=== PATIENT | male | born 1955 | race Caucasian/White ===

== ENCOUNTER 2017-08-12 16:00 | Inpatient (IN) | payer BC ==
--- NOTE | 2017-08-12 16:37 | ED ---
General Adult HPI - General Chief complaint: Wound/Laceration Stated complaint: Hand infection Time Seen by Provider: 08/12/17 16:20 Source: patient, RN notes reviewed Mode of arrival: ambulatory Limitations: no limitations - History of Present Illness Initial comments: 62-year-old male history of hypertension and hypercholesterolemia presents for evaluation of pain and swelling in his right thumb. Patient was sent by his primary care physician for failure to improve on outpatient antibiotics. Patient was diagnosed with a paronychia on Tuesday, he has been on Bactrim since that time. Within the past 5 days he has also received a shot of ceftriaxone. Symptoms have failed to improve, he has had some minimal drainage coming from the wound. Patient's primary care physician noticed some erythema tracking up the thumb towards the wrist. Sent the patient for IV antibiotics. Patient did have incision and drainage of paronychia earlier in the week. Patient is noted to have a fever in triage. - Related Data Home Medications Medication Instructions Recorded Confirmed Acetaminophen Tab [Tylenol Tab] 1,000 mg PO Q6HR PRN 08/12/17 08/12/17 Ibuprofen [Motrin Ib] 200 - 400 mg PO Q6H PRN 08/12/17 08/12/17 Lisinopril [Zestril] 10 mg PO DAILY 08/12/17 08/12/17 Naproxen Sodium 220 mg PO BID PRN 08/12/17 08/12/17 Omeprazole 20 mg PO DAILY 08/12/17 08/12/17 Simvastatin [Zocor] 20 mg PO DAILY 08/12/17 08/12/17 Sulfamethox-Tmp 800-160Mg [Bactrim 1 tab PO Q12HR 08/12/17 08/12/17 DS 800-160 mg] Allergies Allergy/AdvReac Type Severity Reaction Status Date / Time No Known Allergies Allergy Verified 08/12/17 16:35 Review of Systems ROS Statement: Those systems with pertinent positive or pertinent negative responses have been documented in the HPI. ROS Other: All systems not noted in ROS Statement are negative. Past Medical History Past Medical History: GERD/Reflux, Hyperlipidemia, Hypertension History of Any Multi-Drug Resistant Organisms: None Reported Past Surgical History: Adenoidectomy, Orthopedic Surgery, Tonsillectomy Additional Past Surgical History / Comment(s): eye Past Psychological History: No Psychological Hx Reported Smoking Status: Never smoker Past Alcohol Use History: Occasional Past Drug Use History: None Reported General Exam Limitations: no limitations General appearance: alert, in no apparent distress Head exam: Present: atraumatic, normocephalic Eye exam: Present: normal appearance, PERRL ENT exam: Present: normal exam Neck exam: Present: normal inspection. Absent: tenderness, meningismus Respiratory exam: Present: normal lung sounds bilaterally. Absent: respiratory distress Cardiovascular Exam: Present: regular rate, normal rhythm GI/Abdominal exam: Present: soft. Absent: distended, tenderness Extremities exam: Present: other (Right hand: Patient has infection he the distal phalanx, consistent with combination of felon and paronychia, there is some minimal drainage on the dorsal surface of the distal thumb. There is some tracking erythema and warmth over the hand and wrist.) Back exam: Present: full ROM. Absent: tenderness Neurological exam: Present: alert, oriented X3. Absent: motor sensory deficit Psychiatric exam: Present: normal affect, normal mood Skin exam: Present: warm, dry Course Vital Signs 08/12/17 16:09 Temperature 100.1 F H Pulse Rate 86 Respiratory 16 Rate Blood Pressure 161/95 O2 Sat by Pulse 96 Oximetry Procedures - Incision & Drainage Consent Obtained: verbal consent Time Out Performed?: Yes Indication: Right thumb paronychia and felon Site: hand Anesthetic Used: lidocaine 1%, without epi I&D Cleaning Method: Betadine Sterile Field Used?: Yes Scalpel Used: #11 Irrigation Performed?: Yes I&D Drainage Obtained: Pus, Blood Culture Obtained?: Yes Patient Tolerated Procedure: well Medical Decision Making - Medical Decision Making 60-year-old male presenting for evaluation pain and swelling in his right thumb. Patient has a paronychia that was previously drained in a felon. Patient has been on outpatient antibiotics with no improvement. There was some tracking erythema and warmth on the hand. Patient had previous incision and drainage of paronychia which is draining some mild purulence. Incision and drainage is performed of both paronychia and felon in the emergency department. Cultures are obtained both urine cultures and blood cultures. Patient is started on antibiotics, ceftriaxone and vancomycin. He will be admitted for IV antibiotics and reevaluation. X-ray negative for soft tissue gas or osteomyelitis. Laboratory studies reveal normal blood cell count, there is elevation C-reactive protein at 78 consistent with infection. Diagnosis: Felon, paronychia, failed outpatient antibiotics. - Lab Data Result diagrams: 08/12/17 16:52 Lab Results 18 08/12/17 Range/Units 16:52 16:52 WBC 9.8 (3.8-10.6) k/uL RBC 4.84 (4.30-5.90) m/uL Hgb 15.4 (13.0-17.5) gm/dL Hct 45.6 (39.0-53.0) % MCV 94.3 (80.0-100.0) fL MCH 31.8 (25.0-35.0) pg MCHC 33.7 (31.0-37.0) g/dL RDW 12.0 (11.5-15.5) % Plt Count 337 (150-450) k/uL Neutrophils % 81 % Lymphocytes % 10 % Monocytes % 5 % Eosinophils % 2 % Basophils % 0 % Neutrophils # 7.9 H (1.3-7.7) k/uL Lymphocytes # 1.0 (1.0-4.8) k/uL Monocytes # 0.5 (0-1.0) k/uL Eosinophils # 0.2 (0-0.7) k/uL Basophils # 0.0 (0-0.2) k/uL PT 9.6 (9.0-12.0) sec INR 1.0 (<1.2) APTT 23.5 (22.0-30.0) sec Disposition Clinical Impression: Felon of finger, Paronychia Disposition: ADMITTED IP TO THIS HOSP Condition: Stable Referrals: Anil Canales MD [Primary Care Provider] - 1-2 days Time of Disposition: 17:23
[2017-08-12] MEDS ORDERED: VANCOMYCIN IV PER PHARMACY 1 EACH MISC MISCELLANE PRN (16:40)
[2017-08-12] MEDS ORDERED: cefTRIAXone IN SWFI 1,000 MG/10 ML SYRINGE IVP STA (16:44)
[2017-08-12] MEDS ORDERED: VANCOMYCIN 1,500 MG in SODIUM CHLORIDE 0.9% 250 ML IVPB STA (16:45)
--- NOTE | 2017-08-12 16:57 | XR ---
EXAMINATION TYPE: XR hand complete RT DATE OF EXAM: 08/12/2017 COMPARISON: NONE HISTORY: Three-view right hand, attention fifth digit infection TECHNIQUE: 3 views right hand FINDINGS: No radiopaque foreign bodies are evident. Soft tissues appear normal. No suspicious erosion through the fifth digit is evident. Osseous structures appear intact. IMPRESSION: 1. Normal three-view right hand
[2017-08-12 17:08] LABS: Basophils % (A) 0 %; Eosinophils # (A) 0.2 k/uL (0-0.7); Eosinophils % (A) 2 %; HCT 45.6 % (39.0-53.0); HGB 15.4 gm/dL (13.0-17.5); Lymphocytes % (A) 10 %; MCH 31.8 pg (25.0-35.0); MCHC 33.7 g/dL (31.0-37.0); MCV 94.3 fL (80.0-100.0); Mean Platelet Volume 7.2; Monocytes # (A) 0.5 k/uL (0-1.0); Monocytes % (A) 5 %; Neutrophils # (A) 7.9 k/uL (1.3-7.7); Neutrophils % (A) 81 %; Platelet Count 337 k/uL (150-450); RBC 4.84 m/uL (4.30-5.90); WBC 9.8 k/uL (3.8-10.6)
[2017-08-12 17:12] LABS: Partial Thromboplastin Time 23.5 sec (22.0-30.0); Prothrombin Time 9.6 sec (9.0-12.0)
[2017-08-12 17:19] LABS: ALT 78 U/L (21-72); AST 59 U/L (17-59); Albumin 4.4 g/dL (3.5-5.0); Alkaline Phosphatase 94 U/L (38-126); Anion Gap 14 mmol/L; Blood Urea Nitrogen 27 mg/dL (9-20); C Reactive Protein 78.9 mg/L (<10.0); Calcium 10.2 mg/dL (8.4-10.2); Carbon Dioxide 30 mmol/L (22-30); Chloride 99 mmol/L (98-107); Glucose 106 mg/dL (74-99); Sodium 143 mmol/L (137-145); Total Bilirubin 0.4 mg/dL (0.2-1.3); Total Protein 7.2 g/dL (6.3-8.2)
[2017-08-12] MEDS ORDERED: KETOROLAC 30 MG/ML 1 ML VIAL IM STA (17:24)
[2017-08-12] MEDS ORDERED: KETOROLAC 30 MG/ML 1 ML VIAL IVP STA (17:26)
[2017-08-12] MEDS ORDERED: HYDROmorphone 0.5 MG/0.5 ML SYRINGE IVP PRN (17:30)
[2017-08-12] MEDS ORDERED: NALOXONE 0.4 MG/ML 1 ML VIAL IV PRN ×2 (17:30→21:23)
[2017-08-12] MEDS ORDERED: ACETAMINOPHEN TAB 325 MG TAB PO PRN ×2 (17:30→21:23)
[2017-08-12] MEDS ORDERED: ACETAMINOPHEN TAB 500 MG TAB PO PRN (18:12)
[2017-08-12] MEDS: SODIUM CHLORIDE 0.9% 1,000 ML IV SCH (20:06)
[2017-08-12] MEDS ORDERED: PROCHLORPERAZINE 5 MG TAB PO PRN (21:23)
[2017-08-12] MEDS ORDERED: MELATONIN 3 MG TABLET PO PRN (21:23)
[2017-08-12] MEDS ORDERED: HYDROcodone/APAP 5-325MG 1 EACH TAB PO PRN (21:23)
[2017-08-12] MEDS: NAPROXEN 250 MG TAB PO SCH (21:59)
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
[2017-08-13] MEDS: KETOROLAC 30 MG/ML 1 ML VIAL IVP PRN ×4 (00:01→18:09)
[2017-08-13] MEDS: VANCOMYCIN 1,500 MG in SODIUM CHLORIDE 0.9% 250 ML IVPB SCH ×2 (06:01→18:07)
[2017-08-13] MEDS: SODIUM CHLORIDE 0.9% 1,000 ML IV SCH (06:01)
[2017-08-13] MEDS: PANTOPRAZOLE 40 MG TABLET PO SCH (08:40)
[2017-08-13] MEDS: ATORVASTATIN 10 MG TAB PO SCH (08:40)
[2017-08-13] MEDS: LISINOPRIL 10 MG TAB PO SCH (08:40)
[2017-08-13] MEDS: cefTRIAXone IN SWFI 1,000 MG/10 ML SYRINGE IVP SCH (08:44)
[2017-08-13] MEDS: NAPROXEN 250 MG TAB PO SCH ×2 (08:44→20:12)
[2017-08-13 09:03] LABS: Basophils % (A) 1 %; Eosinophils # (A) 0.2 k/uL (0-0.7); Eosinophils % (A) 3 %; HGB 13.5 gm/dL (13.0-17.5); Lymphocytes # (A) 0.9 k/uL (1.0-4.8); Lymphocytes % (A) 15 %; MCH 31.1 pg (25.0-35.0); MCHC 32.2 g/dL (31.0-37.0); MCV 96.5 fL (80.0-100.0); Mean Platelet Volume 7.4; Monocytes # (A) 0.3 k/uL (0-1.0); Monocytes % (A) 5 %; Neutrophils # (A) 4.6 k/uL (1.3-7.7); Neutrophils % (A) 75 %; Platelet Count 290 k/uL (150-450); RBC 4.35 m/uL (4.30-5.90); RDW 12.2 % (11.5-15.5); WBC 6.2 k/uL (3.8-10.6)
[2017-08-13 09:14] LABS: Anion Gap 13 mmol/L; Blood Urea Nitrogen 29 mg/dL (9-20); Calcium 9.5 mg/dL (8.4-10.2); Carbon Dioxide 24 mmol/L (22-30); Chloride 102 mmol/L (98-107); Glucose 232 mg/dL (74-99); Potassium 4.2 mmol/L (3.5-5.1); Sodium 139 mmol/L (137-145)
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
--- NOTE | 2017-08-13 12:52 | P.PN ---
Progress Note - Text Progress Note Date: 08/13/17 DATE OF SERVICE: 08/13/2017 PRESENTING COMPLAINT: Right thumb infection HISTORY OF PRESENT ILLNESS: 62-year-old male who developed pain in his right thumb about a week ago was seen outpatient by was lanced antibiotics received. Return to the office 2 days after with more pain and swelling another incision made to drain the same. Became worse. [address] it might have started off as Paronychia. Plan continue to be painful throbbing management of low-grade fever presented to the emergency department again where was lanced and possible strain. Cultures were sent. Admitted for the same. INTERVAL HISTORY: 08/13/2017: Sitting up in bed appears comfortable right thumb bandaged. Vital signs stable , no acute overnight events. Some shadowing noted to the dressing. States the thumb feels much better than it did on his previous trips to the emergency department. at the bedside. Orthopedics at the bedside to see the patient. Tolerating his diet eating between 50 and 75% of all meals. ambulatory in the room and hallway, last BM prior to admission. REVIEW OF SYSTEMS: Done for constitutional ,cardiovascular, GI, pulmonary with relevant findings as above. CURRENT MEDICATIONS Tylenol, [place], Lipitor, Rocephin, Toradol, Zestril, melatonin, Narcan, naproxen , Protonix, Compazine, Silvadene, 0.9 normal saline at 20 mL an hour, vancomycin IV. PHYSICAL EXAM VITAL SIGNS: Temperature 97.8, pulse 59, respiratory rate 16, blood pressure 115/64, oxygen saturation 97% on room air GENERAL APPEARANCE: Sitting up on the bed, not in distress. HENT: Normocephalic, JVD not raised. Mass not palpable. Oral cavity normal, external appearance of ears and nose normal. EYES:Pupils equal. Conjunctiva normal. RESPIRATORY: Respiratory effort normal. Lungs clear to auscultation. CARDIOVASCULAR: First and second sounds normal. No edema. ABDOMEN: Soft. Liver and spleen not palpable. No tenderness. No mass palpable. PSYCHIATRY: Alert and oriented x3. Mood and affect normal. EXTREMITIES: Right thumb is swollen with bluish discoloration breakdown of the wound on the lateral aspect where I&D was carried out. Tenderness to palpation some pus draining. INVESTIGATIONS: LABS: CBC unremarkable. BMP: BUN 29, glucose 232 ASSESSMENT: -Acute will be started from paronychia in the right hand. The patient was drained twice by his family doctor in 1 to the ER been on Bactrim and failed outpatient treatment. -Gastroesophageal reflux disease. -Essential hypertension. -Hyperlipidemia. PLAN: Continue IV vancomycin and ceftriaxone, orthopedics plans to take the patient to surgery for right thumb I&D tomorrow. Nothing by mouth after midnight, cultures to be taken during surgery. Patient getting good pain management results with Naprosyn and Toradol. Plan of care discussed at the bedside with patient and they're agreeable. We'll follow closely. COUNTY ADVISER statement: Patient was seen and examined by nurse practitioner Serina Treviño and all elements of the case discussed with attending Dr. Plunkett
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
--- NOTE | 2017-08-14 00:29 | PN ---
PROGRESS NOTE DATE OF SERVICE: August 13, 2017. ATTENDING NOTE: Patient seen and examined by me. I discussed with nurse practitioner, Ms. Treviño. The patient presents with abscess of the right thumb failed outpatient treatment. Pain is better controlled. PHYSICAL EXAMINATION: Afebrile. Pulse 86, respiratory rate 16, blood pressure 100/73, abscess of the right thumb is present. White count 6.2. Patient is growing MRSA. ASSESSMENT: Right thumb abscess, having failed outpatient treatment, growing Methicillin-resistant Staphylococcus aureus. The patient will have I and D done by Dr. Cade tomorrow. Care was discussed with the patient. MMODL / IJN: [id number] /
[2017-08-14] MEDS: VANCOMYCIN 1,500 MG in SODIUM CHLORIDE 0.9% 250 ML IVPB SCH ×2 (05:44→17:50)
[2017-08-14] MEDS: MULTIVITAMINS, THERA 1 EACH TAB PO SCH (05:44)
[2017-08-14] MEDS: KETOROLAC 30 MG/ML 1 ML VIAL IVP PRN ×3 (05:47→17:49)
[2017-08-14] MEDS: PANTOPRAZOLE 40 MG TABLET PO SCH (07:56)
[2017-08-14 08:54] LABS: Anion Gap 11 mmol/L; Blood Urea Nitrogen 22 mg/dL (9-20); Calcium 9.6 mg/dL (8.4-10.2); Carbon Dioxide 27 mmol/L (22-30); Chloride 103 mmol/L (98-107); Glucose 111 mg/dL (74-99); Sodium 141 mmol/L (137-145)
[2017-08-14 08:57] LABS: Basophils % (A) 1 %; Eosinophils # (A) 0.2 k/uL (0-0.7); Eosinophils % (A) 3 %; HCT 41.1 % (39.0-53.0); HGB 13.5 gm/dL (13.0-17.5); Lymphocytes # (A) 1.2 k/uL (1.0-4.8); Lymphocytes % (A) 19 %; MCH 31.7 pg (25.0-35.0); MCHC 32.9 g/dL (31.0-37.0); MCV 96.5 fL (80.0-100.0); Monocytes # (A) 0.4 k/uL (0-1.0); Monocytes % (A) 6 %; Neutrophils # (A) 4.2 k/uL (1.3-7.7); Neutrophils % (A) 69 %; Platelet Count 274 k/uL (150-450); RBC 4.26 m/uL (4.30-5.90); RDW 12.2 % (11.5-15.5); WBC 6.1 k/uL (3.8-10.6)
[2017-08-14] MEDS: LISINOPRIL 10 MG TAB PO SCH (09:15)
[2017-08-14] MEDS: ATORVASTATIN 10 MG TAB PO SCH (09:15)
[2017-08-14] MEDS: NAPROXEN 250 MG TAB PO SCH ×2 (09:15→20:02)
[2017-08-14] MEDS: cefTRIAXone IN SWFI 1,000 MG/10 ML SYRINGE IVP SCH (09:22)
[2017-08-14] MEDS ORDERED: fentaNYL (PF) 50 MCG/ML 2 ML AMP ONE (12:31)
[2017-08-14] MEDS ORDERED: KETOROLAC 30 MG/ML 1 ML VIAL ONE (12:31)
[2017-08-14] MEDS ORDERED: PROPOFOL 10 MG/ML 20 ML VIAL IV ONE (12:31)
[2017-08-14] MEDS ORDERED: MIDAZOLAM 2 MG/2 ML VIAL ONE (12:31)
[2017-08-14] MEDS ORDERED: BUPIVACAINE (PF) 0.25% 30 ML VIAL SQ ONE (12:41)
[2017-08-14] MEDS ORDERED: LACTATED RINGERS 1,000 ML IV ONE (12:51)
[2017-08-14] MEDS ORDERED: ceFAZolin 1,000 MG in SODIUM CHLORIDE 0.9% 1,000 ML IRRIGATION ONE (12:52)
--- NOTE | 2017-08-14 13:17 | P.OP ---
Date of Procedure: 08/14/17 Preoperative Diagnosis: Right thumb felon/abscess Postoperative Diagnosis: Same Procedure(s) Performed: Incision and drainage with irrigation and debridement right thumb felon/abscess Anesthesia: MAC, local Surgeon: Mitchell Cade Agricultural Research Director #1: Maximo Hinds Estimated Blood Loss (ml): 5 Pathology: other (Cultures) Condition: stable Disposition: PACU Indications for Procedure: Patient is a 62-year-old male who presents with a weeklong history of increasing right thumb pain, swelling, and drainage. He has had multiple attempted incision and drainage performed. A discussion of the risks and benefits of irrigation and debridement was made with patient. Specific risks to include persistence of infection, and possible need for subsequent procedures was discussed. Operative Findings: As below Description of Procedure: The patient was brought to the operating room, and after induction of IV sedation a digital block was placed in the right thumb. 10 mL of one quarter percent plain Marcaine was injected. The right upper extremity was prepped and draped in normal fashion. A [place] drain was used as a tourniquet. The nail plate was removed. There was purulence surrounding the volar tissue. Previous incisions were noted. The wound was copiously irrigated with normal saline. The wound edges were sharply debrided with a scalpel including skin and subcutaneous tissues. The necrotic tissue was removed. The wound edges were loosely reapproximated with simple 3-0 nylon suture. A sterile dressing was applied. I did obtain cultures. The patient was awoken from sedation and transferred to the recovery room in good condition. Blood loss was estimated at 5 mL. No complications were incurred.
[2017-08-14] MEDS ORDERED: VANCOMYCIN TROUGH DUE 1 EACH MISC MISCELLANE ONE (16:00)
[2017-08-14] MEDS: SODIUM CHLORIDE 0.9% 1,000 ML IV SCH (17:53)
--- NOTE | 2017-08-14 19:55 | P.PN ---
Progress Note - Text Progress Note Date: 08/14/17 DATE OF SERVICE: 08/14/2017 PRESENTING COMPLAINT: Right thumb infection HISTORY OF PRESENT ILLNESS: 62-year-old male who developed pain in his right thumb about a week ago was seen outpatient by was lanced antibiotics received. Return to the office 2 days after with more pain and swelling another incision made to drain the same. Became worse. [place] it might have started off as Paronychia. Plan continue to be painful throbbing management of low-grade fever presented to the emergency department again where was lanced and possible strain. Cultures were sent. Admitted for the same. INTERVAL HISTORY: 08/14/2017: Sitting up in bed appears comfortable right thumb continues to be bandaged. Vital signs stable no acute overnight events. No shadowing noted to the dressing. Thumb continues to be painful but pain medication does do the job. is at the bedside. Orthopedics to take patient for an I&D of the thumb with cultures later today. Currently nothing by mouth, and ambulatory in the room and hallway last BM 08/14/2017. 08/13/2017: Sitting up in bed appears comfortable right thumb bandaged. Vital signs stable , no acute overnight events. Some shadowing noted to the dressing. States the thumb feels much better than it did on his previous trips to the emergency department. at the bedside. Orthopedics at the bedside to see the patient. Tolerating his diet eating between 50 and 75% of all meals. ambulatory in the room and hallway, last BM prior to admission. REVIEW OF SYSTEMS: Done for constitutional ,cardiovascular, GI, pulmonary with relevant findings as above. CURRENT MEDICATIONS Tylenol, [place], Lipitor, Rocephin, Toradol, Zestril, melatonin, Narcan, naproxen , Protonix, Compazine, Silvadene, 0.9 normal saline at 20 mL an hour, vancomycin IV. PHYSICAL EXAM VITAL SIGNS: Temperature 97.7, pulse 53, respiratory rate 16, blood pressure 115/72, oxygen saturation 97% on room air. GENERAL APPEARANCE: Sitting up on the bed, not in distress. HENT: Normocephalic, JVD not raised. Mass not palpable. Oral cavity normal, external appearance of ears and nose normal. EYES:Pupils equal. Conjunctiva normal. RESPIRATORY: Respiratory effort normal. Lungs clear to auscultation. CARDIOVASCULAR: First and second sounds normal. No edema. ABDOMEN: Soft. Liver and spleen not palpable. No tenderness. No mass palpable. PSYCHIATRY: Alert and oriented x3. Mood and affect normal. EXTREMITIES: Right thumb is swollen with bluish discoloration breakdown of the wound on the lateral aspect where I&D was carried out. Tenderness to palpation some pus draining. INVESTIGATIONS: LABS: BUN 22. Right index finger wound culture: pending Right index finger anaerobic culture: pending Right index finger culture: Methicillin-resistant staph aureus Blood culture no growth after 48 hours ASSESSMENT: -Acute will be started from paronychia in the right hand. The patient was drained twice by his family doctor in 1 to the ER been on Bactrim and failed outpatient treatment. -Gastroesophageal reflux disease. -Essential hypertension. -Hyperlipidemia. PLAN: Continue IV vancomycin and ceftriaxone, right thumb I&D planned for later today. Remains Nothing by mouth cultures to be taken during surgery. With additional cultures from surgery to drive antibiotic therapy per infectious disease. Patient getting satisfactory pain management results with Naprosyn and Toradol. Plan of care discussed at the bedside with patient and they' re agreeable. We'll follow closely. PROJECT GEOPHYSICIST statement: Patient was seen and examined by nurse practitioner Serina Treviño and all elements of the case discussed with attending Dr. Plunkett
--- NOTE | 2017-08-14 21:47 | PN ---
PROGRESS NOTE DATE OF SERVICE: 08/14/2017 ATTENDING NOTE: Patient seen and examined by me. I discussed with nurse practitioner, Ms. Treivño. The patient underwent I and D of the left thumb today by Dr. Cade, left thumb in a dressing. The wound was well irrigated with normal saline. Dressing noted to be changed. Pain is well controlled. No nausea, vomiting. No diarrhea. PHYSICAL EXAMINATION: Afebrile, pulse 50, respiration 18, blood pressure 108/77, left arm in a dressing. Lungs are clear. Cardiovascular 1st and 2nd sounds normal. Wound cultures growing MRSA. ASSESSMENT: Acute wound having failed outpatient treatment to the right thumb, status post I and D growing MRSA. Continue with vancomycin. Will DC the ceftriaxone. Await further input from Dr. Jones. Care was discussed with the patient and . MMODL / IJN: [id number] /
[2017-08-15] MEDS: VANCOMYCIN 1,500 MG in SODIUM CHLORIDE 0.9% 250 ML IVPB SCH (05:23)
[2017-08-15] MEDS: KETOROLAC 30 MG/ML 1 ML VIAL IVP PRN ×4 (05:26→23:18)
[2017-08-15] MEDS: MULTIVITAMINS, THERA 1 EACH TAB PO SCH (05:26)
[2017-08-15] MEDS: PANTOPRAZOLE 40 MG TABLET PO SCH (07:56)
[2017-08-15] MEDS: NAPROXEN 250 MG TAB PO SCH ×2 (07:56→21:49)
[2017-08-15] MEDS: ATORVASTATIN 10 MG TAB PO SCH (07:56)
[2017-08-15] MEDS: LISINOPRIL 10 MG TAB PO SCH (07:56)
[2017-08-15] MEDS: SODIUM CHLORIDE 0.9% 1,000 ML IV SCH (11:00)
--- NOTE | 2017-08-15 11:56 | NM ---
EXAMINATION TYPE: NM bone 3 phase DATE OF EXAM: 08/15/2017 COMPARISON: Radiographs 08/12/2017 HISTORY: 62-year-old male with right thumb swelling and drainage Technique: Triple phase bone scintigraphy was performed following the injection of24.5 mCi Tc 99m MDP . Immediate flow followed by pool images and 3 hours post injection images were acquired of the bila teral distal upper extremity. FINDINGS: There is three-phase bone scan abnormality involving the distal aspect of the thumb of the right hand . Intense delayed activity is localized to the first distal phalanx. IMPRESSION: Three-phase bone scan abnormality involving the distal phalanx of the right thumb. Findings can be se en with osteomyelitis.
[2017-08-15] MEDS: DAPTOmycin 500 MG in SODIUM CHLORIDE 0.9% 50 ML IV SCH (13:02)
[2017-08-15] MEDS ORDERED: LIDOCAINE 2% INJ 20 MG/ML SQ ONE (14:00)
[2017-08-15 14:59] VITALS: RESP 16
--- NOTE | 2017-08-15 15:15 | CDI ---
Last Revision, June 2017 Documentation Clarification Form Date: 08/15/2017 3:07:00 PM From: Ruma HathawayARDEN, CCDS Admit Date: 08/12/2017 5:30:00 PM Patient Name: Otoniel Colby Visit Number: [id number] Discharge Date: ATTENTION: The Clinical Documentation Specialists (CDI) and [facility] Coding Staff appreciate your assistance in clarifying documentation. Please respond to the clarification below the line at the bottom and electronically sign. The CDI & [facility] Coding staff will review the response and follow-up if needed. Please note: Queries are made part of the Legal Health Record. If you have any questions, please contact the author of this message via ITS. Dr. Mitchell Cade: Per your operative note, a debridement was performed on the right thumb. 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 Clinical Indicators: Presented with right thumb felon & abscess, failed outpatient treatment. Treatment: Surgery: I&D with Irrigation & Debridement right thumb. IV Vancomycin , IV Rocephin, IV Toradol, IV Dilaudid. Five elements required for accurate and compliant documentation of a debridement : 1. Technique used (e.g., excisional, excised, cutting, etc.) 2. Instrument(s) used (e.g., scalpel, curette, etc.) 3. Nature of the tissue removed (e.g., necrotic, devitalized tissues, non-viable tissue, etc.) 4. Appearance and size of the wound (e.g., down to fresh bleeding tissue, 7cm x 10cm, etc.) 5. Depth of the debridement* (e.g., skin, subcutaneous tissue, fascia, muscle, bone, etc.) In order to capture the severity of condition and code the appropriate procedure ; could you please document the following: Excisional debridement (the removal of necrotic, devitalized tissue or slough by means of cutting away of tissue) Non-excisional debridement (the removal of necrotic, devitalized tissue or slough by means of flushing, brushing, or washing. (Irrigation) Other; please specify Unable to determine Please continue to document in your progress notes and discharge summary in order to capture severity of illness and risk of mortality. Include clinical findings that support your diagnosis. MTDD
--- NOTE | 2017-08-15 15:31 | P.PN ---
Subjective Progress Note Date: 08/15/17 Principal diagnosis: Status post incision and drainage with irrigation and debridement right thumb abscess Patient was seen today resting in his hospital bed, he appears comfortable. No breakthrough pain through the night. He notes no acute fevers or chills. Objective - Vital Signs Vital signs: Vital Signs Temp 97.6 F 08/15/17 14:58 Pulse 59 L 08/15/17 14:58 Resp 16 08/15/17 14:58 BP 143/73 08/15/17 14:58 Pulse Ox 99 08/15/17 14:58 Intake & Output 08/14/17 08/15/17 08/15/17 18:59 06:59 18:59 Intake Total 501.5 50 Output Total 5 Balance 496.5 50 Weight 74.843 kg Intake: IV 501.5 50 DAPTOmycin 500 mg In 50 Sodium Chloride 0.9% 50 ml @ 100 mls/hr IV Q24H [facility] Rx#:[id number] Output: Estimated Blood Loss 5 Other: # Voids 2 1 # Bowel Movements 0 - Exam Right upper extremity: Postoperative bandages in good position and condition. Radial pulses 2+. His sensation to light touch throughout the index, middle, ring and little finger were intact - Labs CBC & Chem 7: 08/14/17 08:00 08/14/17 08:00 Labs: Microbiology - Last 24 Hours (Table) 08/14/17 13:05 Gram Stain - Preliminary Finger - Right First Wound Culture - Preliminary Presumptive MRSA 08/12/17 17:34 Anaerobic Culture - Preliminary Finger - Right First 08/12/17 16:52 Blood Culture - Preliminary Blood No Growth after 48 hours 08/12/17 17:34 Gram Stain - Final Finger - Right First Wound Culture - Final Methicillin resist S. aureus 08/14/17 13:05 Anaerobic Culture - Preliminary Finger - Right First Assessment and Plan Plan: Assessment: 1. Postop day 1 status post incision and drainage along with irrigation and debridement right thumb abscess Plan: 1. Pain control, oral medication as needed 2. Patient is being scheduled for PICC line and the use of IV outpatient antibiotics 3. We will change postop bandage tomorrow 4. Hopeful discharge tomorrow Time with Patient: Less than 30
--- NOTE | 2017-08-15 19:41 | P.PN ---
Progress Note - Text Progress Note Date: 08/15/17 DATE OF SERVICE: 08/15/2017 PRESENTING COMPLAINT: Right thumb infection HISTORY OF PRESENT ILLNESS: 62-year-old male who developed pain in his right thumb about a week ago was seen outpatient by was lanced antibiotics received. Return to the office 2 days after with more pain and swelling another incision made to drain the same. Became worse. [place] it might have started off as Paronychia. Plan continue to be painful throbbing management of low-grade fever presented to the emergency department again where was lanced and possible strain. Cultures were sent. Admitted for the same. INTERVAL HISTORY: 08/15/2017: Ambulatory in the room and hallway find the patient at the nurse's station. Vital signs are stable, no acute overnight events. No shadowing noted to the dressing. Thumb continues to be painful but anti-inflammatories help. Bone scan scheduled for this morning. Cultures reveal presumptive MRSA. Infectious disease to be consulted for antibiotic therapy and PICC line. 08/14/2017: Sitting up in bed appears comfortable right thumb continues to be bandaged. Vital signs stable no acute overnight events. No shadowing noted to the dressing. Thumb continues to be painful but pain medication does do the job. is at the bedside. Orthopedics to take patient for an I&D of the thumb with cultures later today. Currently nothing by mouth, and ambulatory in the room and hallway last BM 08/14/2017. 08/13/2017: Sitting up in bed appears comfortable right thumb bandaged. Vital signs stable , no acute overnight events. Some shadowing noted to the dressing. States the thumb feels much better than it did on his previous trips to the emergency department. at the bedside. Orthopedics at the bedside to see the patient. Tolerating his diet eating between 50 and 75% of all meals. ambulatory in the room and hallway, last BM prior to admission. REVIEW OF SYSTEMS: Done for constitutional ,cardiovascular, GI, pulmonary with relevant findings as above. CURRENT MEDICATIONS Tylenol, [place], Lipitor, Rocephin, Toradol, Zestril, melatonin, Narcan, naproxen , Protonix, Compazine, Silvadene, 0.9 normal saline at 20 mL an hour, vancomycin IV. PHYSICAL EXAM VITAL SIGNS: Temperature 97.9, pulse 61, respiratory rate 18, blood pressure 125/75, oxygen saturation 97% on room air. GENERAL APPEARANCE: Ambulating in the hallways, not in distress. HENT: Normocephalic, JVD not raised. Mass not palpable. Oral cavity normal, external appearance of ears and nose normal. EYES:Pupils equal. Conjunctiva normal. RESPIRATORY: Respiratory effort normal. Lungs clear to auscultation. CARDIOVASCULAR: First and second sounds normal. No edema. ABDOMEN: Soft. Liver and spleen not palpable. No tenderness. No mass palpable. PSYCHIATRY: Alert and oriented x3. Mood and affect normal. EXTREMITIES: Right thumb with original surgical dressing in place has not been taken down. No drainage noted. INVESTIGATIONS: LABS: None new Bone scan: Three-phase bone scan abnormality involving the distal phalanx of the right thumb findings can be seen with osteomyelitis. Right index finger wound culture: Presumptive MRSA Right index finger anaerobic culture: pending Right index finger culture: Methicillin-resistant staph aureus Blood culture no growth after 48 hours ASSESSMENT: -Acute wound may have started from paronychia in the right hand. The patient was drained twice by his family doctor in 1 to the ER been on Bactrim and failed outpatient treatment. Next day's status post I&D, cultures growing MRSA. -Osteomyelitis of the right thumb in a patient who had an acute wound likely from paronychia, failed outpatient treatment -Gastroesophageal reflux disease. -Essential hypertension. -Hyperlipidemia. PLAN: Continue IV vancomycin, bone scan positive for osteomyelitis infectious disease consulted to direct antibiotic therapy and outpatient treatment. Patient getting satisfactory pain management results with Naprosyn and Toradol. Plan of care discussed at the bedside with patient and they're agreeable. We' ll follow closely. DOCUMENTATION COORDINATOR statement: Patient was seen and examined by nurse practitioner Serina Treviño and all elements of the case discussed with attending Dr. Plunkett
--- NOTE | 2017-08-15 23:24 | P.PN ---
Subjective Progress Note Date: 08/15/17 Principal diagnosis: Pain and swelling right thumb Very pleasant 62-year-old male presents to the emergency center with increasing pain and swelling erythema and drainage to his right thumb. The patient relates no slough (trauma to the thumb. He's had no injuries. No injuries while cooking. No injuries while outside. No injuries while at work. Somebody does not recall any specific trauma to the area when he started developed what appeared to be a blister on the thumb. It progressively was seen in the outpatient setting. The minimal incision and drainage was performed and antibiotic therapy with Keflex was started. It did not improve he was again evaluated in antibiotic therapy was changed to Keflex. He was again seen in the outpatient clinic for further incision and drainage was performed an injection of ceftriaxone was given. Within 24 hours was markedly worsen and presented to the emergency center where he was admitted with the extensive infection to the thumb and with at the infectious diseases, consult was requested. Cultures are in process. He's been seen by orthopedic surgery and the plan is for him to the operating tomorrow for drainage of this extensive abscess. Patient believes he is up-to-date on his tetanus vaccine He's never had a problem like this in the past. He has no exposure to animals. 08/15/2017 the patient is showing marked improvement status post his surgery which resulted in removal of the nail and debridement of the distal aspect of the right thumb. Pain control is adequate at this time. Patient is pleased with his overall care. Objective - Vital Signs Vital signs: Vital Signs Temp 97.6 F 08/15/17 14:58 Pulse 59 L 08/15/17 14:58 Resp 16 08/15/17 14:58 BP 143/73 08/15/17 14:58 Pulse Ox 99 08/15/17 14:58 Intake & Output 08/15/17 08/15/17 08/16/17 06:59 18:59 06:59 Intake Total 50 Balance 50 Intake: IV 50 DAPTOmycin 500 mg In 50 Sodium Chloride 0.9% 50 ml @ 100 mls/hr IV Q24H [facility] Rx#:[id number] Other: # Voids 1 - Exam 62-year-old male of a thin healthy build is in no distress HEENT: Anicteric conjunctiva are pink and moist nasal mucosa grossly intact without significant lesions, there is no thrush. Neck: The neck is supple without significant lymphadenopathy or thyromegaly. Lungs: Good bilateral air entry without significant crackles or wheezing. There is no significant bronchial sounds. There is no egophony or dullness. Heart: Regular rate and rhythm with an audible S1-S2, no S3 no S4. There is no significant murmur click or rub, PMI was nondisplaced. Abdomen: Positive bowel sounds soft and nontender without palpable masses or organomegaly. There was no guarding or rebound. Extremities: The left upper extremity has no abnormalities. right hand showing shows evidence of no difficulties over the index to the pinky fingers. However the right thumb has evidence of the recently surgical debridement. The nail is removed nail bed with expressible purulence. Distal aspect of the thumb has evidence of the incision and drainage. Distal distinct swelling and some erythema to the thumb. However ascending erythema is improved. No epitrochlear or axillary tenderness or lymphadenopathy. No splinter hemorrhages were noted. The lower extremities are free from significant edema. The peripheral pulses were 2+ and symmetric. Neuro: Awake alert oriented to person place and time. There are no acute new gross focal sensory motor deficits. - Labs CBC & Chem 7: 08/14/17 08:00 08/14/17 08:00 Labs: Microbiology - Last 24 Hours (Table) 08/12/17 16:52 Blood Culture - Preliminary Blood No Growth after 72 hours 08/14/17 13:05 Gram Stain - Preliminary Finger - Right First Wound Culture - Preliminary Presumptive MRSA 08/12/17 17:34 Anaerobic Culture - Preliminary Finger - Right First 08/12/17 17:34 Gram Stain - Final Finger - Right First Wound Culture - Final Methicillin resist S. aureus Laboratory Results WBC 6.1 k/uL (3.8-10.6) 08/14/17 08:00 RBC 4.26 m/uL (4.30-5.90) L 08/14/17 08:00 Hgb 13.5 gm/dL (13.0-17.5) 08/14/17 08:00 Hct 41.1 % (39.0-53.0) 08/14/17 08:00 MCV 96.5 fL (80.0-100.0) 08/14/17 08:00 MCH 31.7 pg (25.0-35.0) 08/14/17 08:00 MCHC 32.9 g/dL (31.0-37.0) 08/14/17 08:00 RDW 12.2 % (11.5-15.5) 08/14/17 08:00 Plt Count 274 k/uL (150-450) 08/14/17 08:00 Neutrophils % 69 % 08/14/17 08:00 Lymphocytes % 19 % 08/14/17 08:00 Monocytes % 6 % 08/14/17 08:00 Eosinophils % 3 % 08/14/17 08:00 Basophils % 1 % 08/14/17 08:00 Neutrophils # 4.2 k/uL (1.3-7.7) 08/14/17 08:00 Lymphocytes # 1.2 k/uL (1.0-4.8) 08/14/17 08:00 Monocytes # 0.4 k/uL (0-1.0) 08/14/17 08:00 Eosinophils # 0.2 k/uL (0-0.7) 08/14/17 08:00 Basophils # 0.0 k/uL (0-0.2) 08/14/17 08:00 PT 10.0 sec (9.0-12.0) 08/14/17 08:00 INR 1.0 (<1.2) 08/14/17 08:00 APTT 23.5 sec (22.0-30.0) 08/12/17 16:52 Sodium 141 mmol/L (137-145) 08/14/17 08:00 Potassium 5.0 mmol/L (3.5-5.1) 08/14/17 08:00 Chloride 103 mmol/L (98-107) 08/14/17 08:00 Carbon Dioxide 27 mmol/L (22-30) 08/14/17 08:00 Anion Gap 11 mmol/L 08/14/17 08:00 BUN 22 mg/dL (9-20) H 08/14/17 08:00 Creatinine 0.91 mg/dL (0.66-1.25) 08/14/17 08:00 Est GFR (MDRD) Af Amer >60 (>60 ml/min/1.73 sqM) 08/14/17 08:00 Est GFR (MDRD) Non-Af >60 (>60 ml/min/1.73 sqM) 08/14/17 08:00 Glucose 111 mg/dL (74-99) H 08/14/17 08:00 Plasma Lactic Acid Og 1.4 mmol/L (0.7-2.0) 08/12/17 16:52 Calcium 9.6 mg/dL (8.4-10.2) 08/14/17 08:00 Total Bilirubin 0.4 mg/dL (0.2-1.3) 08/12/17 16:52 AST 59 U/L (17-59) 08/12/17 16:52 ALT 78 U/L (21-72) H 08/12/17 16:52 Alkaline Phosphatase 94 U/L (38-126) 08/12/17 16:52 C-Reactive Protein 78.9 mg/L (<10.0) H 08/12/17 16:52 Total Protein 7.2 g/dL (6.3-8.2) 08/12/17 16:52 Albumin 4.4 g/dL (3.5-5.0) 08/12/17 16:52 Vancomycin Trough 13.3 ug/mL 08/14/17 15:47 Microbiology 08/12/17 16:52 Blood Blood Culture - Preliminary No Growth after 72 hours 08/14/17 13:05 Finger - Right First Gram Stain - Preliminary 08/14/17 13:05 Finger - Right First Wound Culture - Preliminary Presumptive MRSA 08/12/17 17:34 Finger - Right First Anaerobic Culture - Preliminary 08/12/17 17:34 Finger - Right First Gram Stain - Final 08/12/17 17:34 Finger - Right First Wound Culture - Final Methicillin resist S. 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 Is in need of formal incision and drainage which is planned for the morning. Given his work in the community is at risk for MRSA as well as routine staph infection. Currently receiving vancomycin and Rocephin which is appropriate until we have final culture results. At the time of surgery will determine if there is evidence of bony involvement or distal joint involvement, either which would necessitate outpatient intravenous antibiotic therapy. Given this is a thumb infection aggressive antibiotic therapy will be required to allow good resolution of the infection. Multivitamin with zinc is added. Patient believes she is up-to-date with his tetanus vaccine. 08/15/2017 patient has had further improvement. Pain control is improving. Today involves bone scan which verifies the osteomyelitis is to be distal phalanx of the right thumb. Subsequently PICC line is requested to working for outpatient intravenous antibiotic therapy. Once arrangement discharged home. Local wound care per orthopedics at this time. Will likely not be able to work while he is having the care for this extensive infection. Etiology remains unclear. Current Visit: Yes Status: Acute Code(s): RLJ1042 - SNOMED Code(s): 12850466 (2) Felon of finger Current Visit: Yes Status: Acute Code(s): L03.019 - CELLULITIS OF UNSPECIFIED FINGER SNOMED Code(s): 640407454 (3) Staphylococcal infection Current Visit: Yes Status: Acute Code(s): B95.8 - UNSP STAPHYLOCOCCUS THE CAUSE OF DISEASES [facility] SNOMED Code(s): 89819126
[2017-08-16] MEDS: MULTIVITAMINS, THERA 1 EACH TAB PO SCH (06:03)
[2017-08-16] MEDS: KETOROLAC 30 MG/ML 1 ML VIAL IVP PRN ×2 (06:04→13:09)
--- NOTE | 2017-08-16 07:10 | PN ---
PROGRESS NOTE DATE OF SERVICE: 08/15/2017 ATTENDING NOTE: Patient seen and examined by me. I discussed with nurse practitioner Ms. Treviño. Patient's dressing is in place. Bone scan has come back positive for osteomyelitis. PHYSICAL EXAM: Left arm in a dressing. Lungs are clear. CARDIOVASCULAR: First and second sounds are normal. ASSESSMENT: Acute osteomyelitis of the distal phalanx. PLAN: Continue patient on IV daptomycin. Home antibiotics are being ordered by Dr. Jones. Patient's blood pressure is running often times below 120s, hence we could try dropping the Zestril down to 5 mg. MMODL / IJN: [id number] /
[2017-08-16 08:36] VITALS: BP 122/65; PULSE 60; TEMP 97.6
[2017-08-16] MEDS ORDERED: LISINOPRIL 5 MG TAB PO SCH (09:00)
[2017-08-16] MEDS: ATORVASTATIN 10 MG TAB PO SCH (09:41)
[2017-08-16] MEDS: NAPROXEN 250 MG TAB PO SCH (09:42)
[2017-08-16] MEDS: PANTOPRAZOLE 40 MG TABLET PO SCH (09:44)
--- NOTE | 2017-08-16 13:52 | P.PN ---
Subjective Progress Note Date: 08/16/17 Principal diagnosis: Status post incision and drainage with irrigation and debridement right thumb abscess Patient was seen today resting in his hospital bed, he appears comfortable. No breakthrough pain through the night. He notes no acute fevers or chills. Objective - Vital Signs Vital signs: Vital Signs Temp 97.6 F 08/16/17 07:00 Pulse 60 08/16/17 07:00 Resp 16 08/16/17 07:00 BP 122/65 08/16/17 07:00 Pulse Ox 99 08/16/17 07:00 Intake & Output 08/15/17 08/16/17 08/16/17 18:59 06:59 18:59 Intake Total 50 Balance 50 Intake: IV 50 DAPTOmycin 500 mg In 50 Sodium Chloride 0.9% 50 ml @ 100 mls/hr IV Q24H [facility] Rx#:[id number] Other: # Voids 1 - Exam Right upper extremity: Erythema around the right thumb is improved. There is granulation tissue present throughout the palmar aspect of the distal phalanx of the thumb. No active drainage is visualized Radial pulses 2+. His sensation to light touch throughout the index, middle, ring and little finger were intact - Labs CBC & Chem 7: 08/14/17 08:00 08/14/17 08:00 Labs: Microbiology - Last 24 Hours (Table) 08/12/17 16:52 Blood Culture - Preliminary Blood No Growth after 72 hours 08/14/17 13:05 Gram Stain - Preliminary Finger - Right First Wound Culture - Preliminary Presumptive MRSA Assessment and Plan Plan: Assessment: 1. Postop day #2 status post incision and drainage along with irrigation and debridement right thumb abscess Plan: 1. Pain control, patient will utilize Tylenol after discharge 2. IV antibiotics have been ordered for home 3. Wound care instructions were discussed with the patient 4. Plan for follow-up in the office in 10-14 days for check of the incision Time with Patient: Less than 30
[2017-08-16] MEDS: DAPTOmycin 500 MG in SODIUM CHLORIDE 0.9% 50 ML IV SCH (14:01)
--- NOTE | 2017-08-16 20:40 | DS ---
DISCHARGE SUMMARY DATE OF ADMISSION: 08/12/2017. DATE OF DISCHARGE: 08/16/2017 FINAL DIAGNOSES: 1. Acute osteomyelitis of the right distal phalanx of the first digit/thumb with cultures positive for methicillin-resistant Staphylococcus aeruginosa, having failed outpatient treatment. 2. Acute cellulitis wound of the right thumb, having failed outpatient treatment. 3. Gastroesophageal reflux disease. 4. Essential hypertension. 5. Hyperlipidemia. HOSPITAL COURSE: This is a very pleasant gentleman who presented with infection of the right thumb who had twice I&D as an outpatient, once in the ER. It did not get better; hence decided to come in; rather infected-appearing. He was taken to the OR by Dr. Cade. I&D was carried out. Cultures did grow MRSA. Bone scan did confirm osteomyelitis of the right distal phalanx. Antibiotics were boarded per Dr. Jones. Patient's right thumb is in a dressing. Since blood pressure was rather well controlled, patient's dose of SHABANA inhibitor has been cut back. Patient was told to keep checking his blood pressure. On examination, lungs are clear. CARDIOVASCULAR: First and second sounds normal. White count is normal. DISCHARGE MEDICATIONS: 1. Tylenol q.6 p.r.n. 2. Omeprazole 20 mg p.o. daily. 3. Zocor 20 mg p.o. daily. 4. Daptomycin 500 mg IV piggyback daily for 42 days. 5. Zestril 5 mg p.o. daily; new dose. 6. Melatonin 3 mg p.o. at bedtime p.r.n. 7. Naproxen 500 mg p.o. b.i.d., 30 tablets. 8. Wound dressing as per Dr. Cade. Labs CBC and BMP in a week. The patient has a PICC line in place. Follow up with Dr. Canales on 08/19/2017. Follow up with Dr. Vaughn in one week. Follow up with Dr. Cade on 08/24/2017. The patient will follow with IV antibiotics at telephone number , Dr. Jones/[facility]. MMODL / IJN: [id number] /
--- NOTE | 2017-08-17 11:42 | CDI ---
Last Revision, June 2017 Documentation Clarification Form Date: 08/15/2017 3:07:00 PM From: Ruma HathawayARDEN, CCDS Admit Date: 08/12/2017 5:30:00 PM Patient Name: Otoniel Colby Visit Number: [id number] Discharge Date: 08/16/2017 ATTENTION: The Clinical Documentation Specialists (CDI) and [facility] Coding Staff appreciate your assistance in clarifying documentation. Please respond to the clarification below the line at the bottom and electronically sign. The CDI & [facility] Coding staff will review the response and follow-up if needed. Please note: Queries are made part of the Legal Health Record. If you have any questions, please contact the author of this message via ITS. Dr. Mitchell Cade: Per your operative note, a debridement was performed on the right thumb. 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 Clinical Indicators: Presented with right thumb felon & abscess, failed outpatient treatment. Treatment: Surgery: I&D with Irrigation & Debridement right thumb. IV Vancomycin , IV Rocephin, IV Toradol, IV Dilaudid. Five elements required for accurate and compliant documentation of a debridement : 1. Technique used (e.g., excisional, excised, cutting, etc.) 2. Instrument(s) used (e.g., scalpel, curette, etc.) 3. Nature of the tissue removed (e.g., necrotic, devitalized tissues, non- viable tissue, etc.) 4. Appearance and size of the wound (e.g., down to fresh bleeding tissue, 7cm x 10cm, etc.) 5. Depth of the debridement* (e.g., skin, subcutaneous tissue, fascia, muscle , bone, etc.) In order to capture the severity of condition and code the appropriate procedure ; could you please document the following: Excisional debridement (the removal of necrotic, devitalized tissue or slough by means of cutting away of tissue) Non-excisional debridement (the removal of necrotic, devitalized tissue or slough by means of flushing, brushing, or washing. (Irrigation) Other; please specify Unable to determine Please continue to document in your progress notes and discharge summary in order to capture severity of illness and risk of mortality. Include clinical findings that support your diagnosis. excisional debridement performed removing necrotic tissue down to subcutaneous fat, and skin slough removed with a scalpel. 2cm wound taken down to bleeding tissue. MTDD
--- NOTE | 2017-08-22 14:05 | IR ---
PICC LINE PLACEMENT: HISTORY: Infection requiring long-term antibiotic therapy PROCEDURE: Ultrasound and fluoroscopic guidance of PICC line placement. COMPLICATIONS: None ANESTHESIA: 1. 1% Lidocaine locally. FINDINGS/TECHNIQUE: The procedure was explained to the patient. The risks, complications, benefits and alternatives were discussed and any questions were answered. Informed consent was obtained. The patient was placed supine on the fluoroscopic table and prepped and draped in the usual sterile fas ion. Utilizing a 21 gauge needle and sonographic and fluoroscopic guidance, access in the vein was achieved and there is placement of a 0.018 guidewire. The vein is patent. A 4-F sheath was placed o ugo the guidewire. The guidewire and dilator were removed and a 4-F. PICC line was placed through th e sheath with the tip at the level of the SVC. The sheath was removed, the catheter was flushed and sutured into position. The patient was stable throughout the procedure and remained stable upon disc harge from the Department of Radiology. The vein puncture was patent under ultrasound. A uribe scale image was obtained to document patency of the vein punctured. All elements of the maximal barrier technique were utilized. FLUOROSCOPY TIME: 0.1 minutes and no image submitted IMPRESSION: Successful PICC line placement under ultrasound and fluoroscopic guidance.
--- NOTE | 2017-10-02 22:30 | PN ---
PROGRESS NOTE ADDENDUM: DATE OF SERVICE: 08/15/2017. PHYSICAL EXAM: Right hand in a dressing. Lungs are clear. Cardiovascular, 1st and 2nd sounds normal. ASSESSMENT: Acute osteomyelitis of the distal phalanx of the right thumb. MMODL / IJN: [id number] /
--- NOTE | 2017-10-02 22:30 | PN ---
PROGRESS NOTE ADDENDUM: DATE OF SERVICE: 08/14/2017. ATTENDING NOTE: Patient seen and examined by me. The patient underwent I and D of the right thumb today by Dr. Cade, right thumb in a dressing. MMODL / IJN: [id number] /
== END 2017-08-16 15:44 | disposition home or self-care (01) | DRG 513 ==
LOC: EC 16:00 → 4MS4W 17:30
PROVIDERS: ADMIT Hospitalist; ATTEND Hospitalist
PROC: 0JBJ0ZZ Excision of Right Hand Subcutaneous Tissue and Fascia, Open Approach (ICD-10-PCS; principal; 2017-08-14 11:00)
DX: M86.141 Other acute osteomyelitis, right hand (principal); L02.511 Cutaneous abscess of right hand; E78.00 Pure hypercholesterolemia, unspecified; L03.011 Cellulitis of right finger; B95.8 Unspecified staphylococcus as the cause of diseases classified elsewhere; I10 Essential (primary) hypertension; K21.9 Gastro-esophageal reflux disease without esophagitis; Z79.899 Other long term (current) drug therapy; Z80.0 Family history of malignant neoplasm of digestive organs; Z82.49 Family history of ischemic heart disease and other diseases of the circulatory system; Z83.3 Family history of diabetes mellitus; Z87.891 Personal history of nicotine dependence
CPT/HCPCS: 10060; 26010; 36415; 36569; 76937; 77001; 78315; 80048; 80053; 80202; 83605; 85025; 85610; 85730; 86140; 87040; 87070; 87075; 87077; 87186; 87205; 96365; 96375; 99284

== ENCOUNTER 2019-08-23 10:03 | Day surgery (SDC) | payer BC ==
[2019-08-22 11:48] VITALS: BMI 24.3
[~2019-08-23 10:03] MED LIST: LACTATED RINGERS 1,000 ML IV SCH; LIDOCAINE 1% 20 ML VIAL (10MG/ML) FOR IV START INTRADERMA PRN
[2019-08-23 10:26] VITALS: TEMP 97.8
[2019-08-23] MEDS ORDERED: PROPOFOL 10 MG/ML 20 ML VIAL IV ONE (11:22)
[2019-08-23] MEDS ORDERED: LIDOCAINE 1% INJ 10MG/ML (20 ML MDV) ONE (11:22)
[2019-08-23 12:09] VITALS: RESP 16
--- NOTE | 2019-08-23 12:14 | P.PCN ---
Date of Procedure: 08/23/19 Description of Procedure: BRIEF HISTORY: 64-year-old female presents for outpatient colonoscopy for history of colon polyps. Denies any change in bowel habits, blood per rectum or abdominal pain. Reports prior colonoscopy approximately 7 years ago with polypectomy. PROCEDURE PERFORMED: Colonoscopy. PREOPERATIVE DIAGNOSIS: History of colon polyps, last colonoscopy approximately 7 years ago. ESTIMATED BLOOD LOSS: Minimal. IV sedation per Anesthesia. PROCEDURE: After informed consent was obtained, the patient, was brought into the endoscopy unit. IV sedation was administered by Anesthesia under continuous monitoring. Digital rectal examination was normal. Initially the Olympus CF-190 flexible video colonoscope was then inserted in the rectum, gradually advanced into the cecum without any difficulty. Careful examination was performed as the scope was gradually being withdrawn. Ileocecal valve and the appendiceal orifice were visualized and appeared normal. Prep was excellent. The terminal ileum was intubated and appeared normal. Mucosa of the cecum, ascending colon, transverse colon, descending colon, sigmoid colon, and rectum appeared normal, except for multiple large and small diverticula noted in the left colon. . Retroflexion was performed in the rectum and no lesions were seen. The patient tolerated the procedure well. IMPRESSION: severe left colonic diverticulosis. Otherwise normal-appearing colon from rectum to cecum . RECOMMENDATIONS: Findings of this examination were discussed with the patient and his . Okay to resume diet. Okay to resume medication. Repeat colonoscopy in 5 years for history colon polyps.
[2019-08-23 12:32] VITALS: BP 131/75; PULSE 62
== END 2019-08-23 12:49 | disposition home or self-care (01) ==
LOC: ORWHC2ENDO 10:03
PROVIDERS: ATTEND Internal Medicine
DX: Z12.11 Encounter for screening for malignant neoplasm of colon (principal); K57.30 Diverticulosis of large intestine without perforation or abscess without bleeding; Z86.010 Personal history of colon polyps; Z80.0 Family history of malignant neoplasm of digestive organs; I10 Essential (primary) hypertension; E78.5 Hyperlipidemia, unspecified; K21.9 Gastro-esophageal reflux disease without esophagitis; Z79.899 Other long term (current) drug therapy; Z90.89 Acquired absence of other organs; Z98.890 Other specified postprocedural states; Z87.891 Personal history of nicotine dependence
CPT/HCPCS: J2001; J2704; G0105; 45378

== ENCOUNTER → 2022-01-19 | Outpatient (CLI) | payer MEDICARE ==
--- NOTE | 2022-01-19 07:26 | US ---
EXAMINATION TYPE: US duplex aorta DATE OF EXAM: 01/19/2022 COMPARISON: NONE CLINICAL HISTORY: Z13.6 Encounter for screening for cardiovascular. screening EXAM MEASUREMENTS: Abdominal Aorta: Proximal: 2.7 x 2.3cm Mid: 1.8 x 1.9cm Distal: 1.9 x 1.7cm Bifurcation: RT: 1.2 x 1.1cm LT: 1.2 x 1.1cm no evidence of AAA at this time. Ectatic proximal aorta IMPRESSION: 1. 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
== END | disposition home or self-care (01) ==
LOC: RADUSWWP 06:49
PROVIDERS: ATTEND Family Medicine
DX: Z13.6 Encounter for screening for cardiovascular disorders (principal); I77.819 Aortic ectasia, unspecified site
CPT/HCPCS: 93979